=== PATIENT | female | born 1985 | race African-American/Black ===

== ENCOUNTER 2017-09-08 08:02 | Emergency (ER) | payer OTHER ==
[~2017-09-08] VITALS: Ht 160 cm; Wt 102.1 kg
[2017-09-08] MEDS ORDERED: PREDNISONE 20 M20 M1 PO (08:18)
[2017-09-08] MEDS ORDERED: BACTRIM DS TAB1 EACH PO (08:18)
[2017-09-08 08:45] VITALS: BP 169/70
== END 2017-09-08 08:47 | disposition home or self-care (01) ==
LOC: M.ERS 08:02
DX: S40.862A Insect bite (nonvenomous) of left upper arm, initial encounter (principal); S40.861A Insect bite (nonvenomous) of right upper arm, initial encounter; Z86.14 Personal history of Methicillin resistant Staphylococcus aureus infection; W57.XXXA Bitten or stung by nonvenomous insect and other nonvenomous arthropods, initial encounter; Y93.89 Activity, other specified; Y92.89 Other specified places as the place of occurrence of the external cause; Y99.0 Civilian activity done for income or pay